=== PATIENT | female | born 1935 | race Caucasian/White ===

== ENCOUNTER 2021-05-26 06:55 | Observation (INO) ==
[2021-05-26] MEDS ORDERED: predniSONE 20 MG TABLET PO ONE ×3 (07:30→19:30)
[2021-05-26 07:31] LABS: Bilirubin,Urine Negative (Negative); Blood,Urine Negative (Negative); Clarity,Urine Clear (Clear); Color,Urine Colorless (Yellow); Glucose,Urine (UA) Normal (Normal); Ketones,Urine Negative (Negative); Leukocyte Esterase,Urine Negative (Negative); Nitrite,Urine Negative (Negative); Protein,Urine Negative (Neg-Trace); Specific Gravity,Urine 1.006 (1.010-1.025); Urobilinogen,Urine Normal (Normal)
[2021-05-26] MEDS ORDERED: Ondansetron 4 MG/2 ML VIAL IVP ONE (07:39)
[2021-05-26 07:52] LABS: Basophils % 0.6 %; Eosinophils % 15.1 %; Hematocrit 42.5 % (35.3-44.9); Hemoglobin 13.8 g/dL (11.5-15.4); Immature Granulocytes % 0.2 % (0-4); Lymphocytes # 1.6 K/mcL (0.6-4.6); Lymphocytes % 25.5 %; Mean Corpuscular HGB Conc 32.5 g/dL (31.6-35.5); Mean Corpuscular Hemoglobin 27.7 pg (28.0-33.3); Mean Corpuscular Volume 85.2 fL (83.0-100.0); Mean Platelet Volume 8.6 fL (9.4-12.4); Monocytes # 0.6 K/mcL (0.0-1.3); Monocytes % 8.9 %; Neutrophils # 3.1 K/mcL (1.6-8.9); Platelet Count 242 K/mcL (140-400); Red Blood Count 4.99 M/mcL (3.82-4.97); Red Cell Distribution Width 13.7 % (11.5-14.5); Segmented Neutrophils % 49.7 %; White Blood Count 6.3 K/mcL (4.3-11.1)
[2021-05-26] MEDS ORDERED: Morphine Sulfate 2 MG/ML SYRINGE ONE (08:02)
[2021-05-26 08:04] LABS: Alanine Aminotransferase 19 Units/L (7-52); Albumin 4.7 g/dL (3.5-5.7); Albumin/Globulin Ratio 1.5 (1.1-2.2); Alkaline Phosphatase 58 Units/L (34-104); Aspartate Amino Transferase 16 Units/L (13-39); BUN/Creatinine Ratio 24 (6-26); Bilirubin,Direct 0.1 mg/dL (0.0-0.2); Bilirubin,Indirect 0.5 mg/dL (0.0-1.0); Bilirubin,Total 0.6 mg/dL (0.3-1.0); Blood Urea Nitrogen 16 mg/dL (8-23); Calcium 10.3 mg/dL (8.6-10.3); Carbon Dioxide 26 mEq/L (23-29); Chloride 101 mEq/L (98-107); Globulin 3.2 g/dL (2.4-3.5); Glucose 117 mg/dL (70-105); Lipase 12 Units/L (11-82); Osmolality,Calculated 284 (280-300); Potassium 3.7 mEq/L (3.5-5.1); Sodium 136 mEq/L (136-145); Total Protein 7.9 g/dL (6.4-8.9); eGFR For African Americans > 60 (> 60); eGFR For Non-African Americans > 60 (> 60)
[2021-05-26] MEDS: Morphine Sulfate 2 MG/ML SYRINGE IVP ONE ×2 (08:06→08:07)
[2021-05-26] MEDS ORDERED: Isovue-370 500 ML BOTTLE IVP ONE (08:56)
[2021-05-26] MEDS ORDERED: Melatonin 3 MG TABLET PO PRN (09:00)
[2021-05-26] MEDS ORDERED: Naloxone 0.4 MG/ML INJ IVP PRN (09:00)
[2021-05-26] MEDS ORDERED: Dextrose 4 GM Chewable Tablets PO PRN ×2 (09:17)
[2021-05-26] MEDS ORDERED: D5% in Water 1,000 ML IVC PRN (09:17)
[2021-05-26] MEDS ORDERED: *HR* Dextrose 50 % in Water (Syg) 50 ML SYRINGE IVP PRN (09:17)
[2021-05-26] MEDS: 0.9 % Sodium Chloride 1,000 ML IVC SCH ×2 (09:25→22:20)
[2021-05-26 09:45] LABS: Carcinoembryonic Antigen 2.5 ng/mL (Less than 5.0)
[2021-05-26] MEDS: Insulin LISPRO 300 UNITS/3 ML VIAL SUBQ SCH ×2 (12:40→17:02)
[2021-05-27 02:08] LABS: Basophils % 0.2 %; Eosinophils % 0.1 %; Hematocrit 41.4 % (35.3-44.9); Hemoglobin 13.3 g/dL (11.5-15.4); Immature Granulocytes % 0.5 % (0-4); Lymphocytes # 1.4 K/mcL (0.6-4.6); Lymphocytes % 13.8 %; Mean Corpuscular HGB Conc 32.1 g/dL (31.6-35.5); Mean Corpuscular Hemoglobin 27.7 pg (28.0-33.3); Mean Corpuscular Volume 86.3 fL (83.0-100.0); Mean Platelet Volume 9.2 fL (9.4-12.4); Monocytes # 0.2 K/mcL (0.0-1.3); Monocytes % 2.4 %; Neutrophils # 8.2 K/mcL (1.6-8.9); Platelet Count 259 K/mcL (140-400); Red Cell Distribution Width 13.6 % (11.5-14.5)
[2021-05-27 02:09] LABS: White Blood Count 9.9 K/mcL (4.3-11.1)
[2021-05-27 02:31] LABS: BUN/Creatinine Ratio 27 (6-26); Blood Urea Nitrogen 17 mg/dL (8-23); Calcium 10.3 mg/dL (8.6-10.3); Carbon Dioxide 23 mEq/L (23-29); Chloride 105 mEq/L (98-107); Glucose 157 mg/dL (70-105); Magnesium 2.1 mg/dL (1.6-2.6); Osmolality,Calculated 291 (280-300); Potassium 3.8 mEq/L (3.5-5.1); Sodium 138 mEq/L (136-145); eGFR For African Americans > 60 (> 60); eGFR For Non-African Americans > 60 (> 60)
[2021-05-27] MEDS: Acetaminophen 325 MG TABLET PO PRN (07:36)
[2021-05-27] MEDS: Insulin LISPRO 300 UNITS/3 ML VIAL SUBQ SCH ×3 (07:37→16:59)
[2021-05-28] MEDS: Acetaminophen 325 MG TABLET PO PRN (06:42)
[2021-05-28] MEDS: Insulin LISPRO 300 UNITS/3 ML VIAL SUBQ SCH ×3 (08:50→17:11)
[2021-05-28] MEDS ORDERED: Aspirin Enteric Coated 81 MG Tablet PO SCH (09:00)
[2021-05-28] MEDS ORDERED: Lisinopril-HCTZ 20-12.5mg TABLET PO SCH (09:00)
[2021-05-28] MEDS ORDERED: amLODIPine 5 MG TABLET PO SCH (09:00)
[2021-05-28 10:14] LABS: Estimated Average Glucose 128 mg/dl; Hemoglobin A1C 6.1 %
[2021-05-28 11:19] VITALS: O2SAT 96
[2021-05-28 14:39] VITALS: BP 136/71; PULSE 70; TEMP 97.7
== END 2021-05-28 19:33 | disposition home or self-care (01) ==
LOC: 3BNU 06:55 → EMEROOARM 06:55 → SUATTDRO 08:38 → 3BNU 10:02
PROVIDERS: ADMIT Hospitalist; ATTEND Registered Nurse